=== PATIENT | male | born 2000 | race Caucasian/White ===

== ENCOUNTER 2021-05-19 18:12 | Emergency (ER) | payer BC ==
[2021-05-19 18:22] VITALS: BP 112/68; PULSE 72; TEMP 98.2; BMI 21.4
[2021-05-19] MEDS ORDERED: DIPHTH,PERTUSS(ACELL),TET 0.5 ML DISP.SYRIN IM ONE ×2 (19:02→19:10)
== END 2021-05-19 19:54 | disposition home or self-care (01) ==
LOC: JERFT 18:12
PROC: 0HQGXZZ Repair Left Hand Skin, External Approach (ICD-10-PCS; principal; 2021-05-19)
PROC: 3E0234Z Introduction of Serum, Toxoid and Vaccine into Muscle, Percutaneous Approach (ICD-10-PCS; 2021-05-19)
DX: S61.412A Laceration without foreign body of left hand, initial encounter (principal); W26.8XXA Contact with other sharp object(s), not elsewhere classified, initial encounter
CPT/HCPCS: 12001-25; 90471; 99284-25

== ENCOUNTER 2022-01-14 22:10 | Emergency (ER) | payer BC ==
[2022-01-14 22:24] VITALS: BP 99/77; PULSE 68; TEMP 97.8; BMI 21.4
[2022-01-14 23:35] LABS: BASO % 0.4 % (0-2.0); EOS % 1.5 % (0-4.5); HEMATOCRIT 38.1 % (35.4-49); HEMOGLOBIN 13.1 GM/dL (11.7-16.9); LYMPH % 38.9 % (8-40); MCH 31.2 pg (25.7-33.7); MCHC 34.3 g/dl (32.0-35.9); MEAN CELL VOLUME 90.8 fl (80-96); MEAN PLT VOLUME 7.1 fl (7.5-11.1); MONO % 10.3 % (3.8-10.2); NEUT % 48.9 % (42.8-82.8); PLATELET COUNT 289 10^3/uL (134-434); RBC 4.19 M/mm3 (4.00-5.60); RDW 13.3 % (11.9-15.9); WHITE BLOOD COUNT 7.7 K/mm3 (4.0-10.0)
[2022-01-14 23:58] LABS: CALCIUM 9.1 mg/dL (8.5-10.1)
[2022-01-14 23:59] LABS: BLOOD UREA NITROGEN 12.2 mg/dL (7-18)
[2022-01-15 00:02] LABS: CREATININE 0.8 mg/dL (0.55-1.3)
[2022-01-15 00:04] LABS: BILIRUBIN,TOTAL 0.8 mg/dL (0.2-1); TOT PROT 7.4 g/dl (6.4-8.2)
== END 2022-01-15 00:52 | disposition home or self-care (01) ==
LOC: JER 22:10
DX: R68.89 Other general symptoms and signs (principal); V89.9XXA Person injured in unspecified vehicle accident, initial encounter
CPT/HCPCS: 36415; 70450-TC; 80053; 85025; 99284-25